=== PATIENT | male | born 1965 | race Caucasian/White ===

== ENCOUNTER 2024-04-30 13:11 | Emergency (ER) | payer OTHER, SELFPAY ==
[2024-04-30 14:17] VITALS: BP 128/80; PULSE 68; RESP 18; TEMP 36.2; O2SAT 98; BMI 26.4
--- NOTE | 2024-04-30 14:18 | ED_ITS ---
HPI - General Adult General Chief complaint: General Medical Stated complaint: exposed to rabies Time Seen by Provider: 04/30/24 15:40 Source: patient Mode of arrival: ambulatory Limitations: no limitations History of Present Illness HPI narrative: Patient is a 59-year-old male who presents emergency department for evaluation after bat exposure. Reports that he went into his kitchen Friday night, proximally 5 days ago and found a lethargic bat in his kitchen sink. He did not touch the band does not recall that he had gotten bit. He is not sure how long the bat was in his home. He was not able to seek evaluation sooner due to work this week. He was previously vaccinated against rabies about 25 years ago. He has no symptoms currently. Related Data Allergies Allergy/AdvReac Type Severity Reaction Status Date / Time Sulfa (Sulfonamide AdvReac Rash Verified 04/30/24 14:23 Antibiotics) Review of Systems Review of Systems: Yes all other systems are reviewed and are negative PMFSH Past Medical History Attestation statement: The following information was validated with the patient. Source: old records reviewed Social History Social History Advance Directives: No Advance Directives Information Provided: No Do you have a plan to hurt others: No Plan Physical Exam ED Vital Signs: Vital Signs - 24 hr 04/30/24 14:17 Temperature 97.1 F Pulse Rate 68 Respiratory Rate 18 Blood Pressure 128/80 Pulse Oximetry 98 Oxygen Delivery Method Room Air BMI result Body Mass Index 26.4 Appearance: Alert.?Oriented to person, place and time. No acute distress.?Normal affect. CVS: Heart sounds normal. Normal heart rate and rhythm.? Pulses normal.?? Respiratory: No respiratory distress.? Lung sounds clear to auscultation bilaterally?? Skin: Skin warm and dry.? Normal skin color.? ?? Extremities: No lower extremity edema.? Neuro: Moves all extremities spontaneously. Sensation intact bilaterally. CN II- XII intact. No focal neuro deficits. Ambulates with normal steady gait. Course Course Course Narrative: This is an RME: Additional HPI, ROS, PE not included below will be deferred to primary provider. RME assessment and note performed by: Crystal Barclay PA-C This is a [id number] who presents to the ER with a complaint of bat exposure. Pt states that he walked into his kitchen on friday night and noticed a lethargic bat in the kitchen sink. He did not touch the bat, did not get bit. Unsure how long the bat was present in his house for. Was previously vaccinated against rabies about 25 years ago. Plan: needs rabies series Medical Decision Making Medical Decision Making [facility] Narrative: As per guidance from the CDC and WHO indicated post exposure vaccination series includes a 2 dose series the 1st on day 0 and the 2nd on day 3 (prior vaccination was given after the [employer] vaccines in the early 1980s, was not previously immunocompromised, has not had exposure in the midst of prior treatment), and rabies immune globulin is not recommended for individuals who qualify for the to dose post exposure series. I discussed with patient outpatient follow-up for his 2nd vaccine through short-stay surgery, he expresses concern about his ability to follow-up on Friday or receive a call from short-stay surgery, he also stated that his primary care office advised him they would be able to provide his 2nd dosing after he received the 1st in the emergency department. Regardless, I will place orders accordingly for his 2nd dose on day 3, inpatient will be given the option to follow up with short-stay surgery and/or his primary care doctor. Differential Diagnosis Differential Diagnoses: The differential diagnosis associated with the presentation includes (Rabies exposure) Discharge Plan Discharge Clinical Impression: Exposure to bat without known bite Patient Disposition: Home, Self-Care Instructions: Postexposure Prophylaxis (ED) Additional Instructions: Rabies follow up with the [facility] [place] [place] Infusion Center: Upon discharge from the ED today, you will be contacted by the Infusion Center to schedule your follow up Rabies vaccines. You will need a total of 1 more injection. If for some reason you do not receive a call, please call the Infusion Center directly at [phone]. Follow up with your primary care prov ider after completion of the vaccine to have a titer drawn to ensure the vaccines effectiveness. As discussed, you may also follow-up with your primary care doctor's office. Print Language: Irish
[2024-04-30 17:55] VITALS: BP 138/84; PULSE 57; RESP 14; TEMP 36.8; O2SAT 96
[2024-04-30] MEDS: Rabies Vaccine, Human Diploid (Imovax) 1 ML VIAL IM (18:12)
[2024-04-30 18:13] VITALS: BP 138/84; PULSE 57; RESP 14; TEMP 36.8; O2SAT 96
== END 2024-04-30 18:14 | disposition home or self-care (01) ==
PROVIDERS: Emergency Provider Emergency Medicine; PCP Family Medicine
DX: Z20.3 Contact with and (suspected) exposure to rabies (principal); Z23 Encounter for immunization
CPT/HCPCS: 90471; 90675; 99283; 99284

== ENCOUNTER 2024-05-03 14:45 | Outpatient (RCR) | payer OTHER, SELFPAY ==
[2024-05-03 14:49] VITALS: BP 115/79; PULSE 63; RESP 14; TEMP 36.6; O2SAT 97
[2024-05-03] MEDS: Rabies Vaccine, Human Diploid (Imovax) 1 ML VIAL IM (14:58)
--- NOTE | 2024-05-03 15:01 | HO.INF ---
patient states day 7 and 14 injection are scheduled at his [facility]
== END 2024-05-03 15:03 | disposition home or self-care (01) ==
LOC: HO.INF 14:45
PROVIDERS: Visit Provider Nurse Practitioner Family
DX: Z20.3 Contact with and (suspected) exposure to rabies (principal)
CPT/HCPCS: 90471; 90675